=== PATIENT | female | born 1945 | race Caucasian/White ===

== ENCOUNTER → 2024-08-26 | Outpatient (CLI) | payer OTHER, MEDICAID, SELFPAY ==
[2024-08-26 13:42] LABS: Basophils # (Auto) 0.1 Thou/mm3 (0.0-0.2); Basophils % (Auto) 2 % (0-2.5); Eosinophils # (Auto) 0.1 Thou/mm3 (0.0-0.5); Eosinophils % (Auto) 3 % (0-10); Hematocrit 37.4 % (36.0-46.0); Hemoglobin 12.7 g/dL (12.0-16.0); Immature Granulocytes % (Auto) 0 % (0-0); Immature Granulocytes Auto 0.01 Thou/mm3 (0.00-0.00); Lymphocytes # (Auto) 1.2 Thou/mm3 (1.0-4.8); Lymphocytes % (Auto) 32 % (10-50); Mean Corpuscular Hemoglobin 35.2 pg (25.0-35.0); Mean Corpuscular Volume 104 fL (80-100); Monocytes # (Auto) 0.4 Thou/mm3 (0.0-0.8); Monocytes % (Auto) 10 % (0-12); Neutrophils % (Auto) 53 % (37-80); Nucleated Red Blood Cell % 0 /100 WBC (0); Platelet Count 133 Thou/mm3 (140-440); RDW Standard Deviation 56.8 fL (36.4-46.3); Red Blood Count 3.61 Miln/mm3 (4.00-5.20); White Blood Count 3.8 Thou/mm3 (3.6-11.0)
[2024-08-26 14:17] LABS: Alanine Aminotransferase 39 U/L (10-49); Albumin, Serum 3.9 gm/dL (3.4-4.8); Albumin/Globulin Ratio 2.1 (1.2-2.2); Alkaline Phosphatase 72 U/L (46-116); Anion Gap 8 (7-16); Aspartate Amino Transferase 57 U/L (0-34); BUN/Creatinine Ratio 16 Ratio (12-20); Bilirubin,Total 0.4 mg/dL (0.3-1.2); Blood Urea Nitrogen 13 mg/dL (9-23); Calcium 8.9 mg/dL (8.3-10.6); Chloride 110 mMol/L (98-107); Creatinine (Component) 0.8 mg/dL (0.6-1.3); Globulin 1.9 gm/dL (2.3-3.5); Glucose 80 mg/dL (74-106); Osmolality,Calculated 282 (275-295); Potassium 4.7 mMol/L (3.4-5.1); Sodium 142 mMol/L (136-145); Total Protein 5.8 gm/dL (5.7-8.2); eGFR > 60 See Note
[2024-08-31 07:00] LABS: Gamma Glutamyl Transpeptidase* 17 U/L (3-65)
== END | disposition home or self-care (01) ==
LOC: COPL 11:30
PROVIDERS: PCP Family Medicine; Referring Provider Internal Medicine Hematology & Oncology; Visit Provider Internal Medicine Hematology & Oncology
DX: K76.0 Fatty (change of) liver, not elsewhere classified (principal); D72.819 Decreased white blood cell count, unspecified; D69.6 Thrombocytopenia, unspecified
CPT/HCPCS: 36415; 80053; 82105; 82977; 85025

== ENCOUNTER → 2024-09-04 | Outpatient (CLI) | payer OTHER, MEDICAID, SELFPAY ==
[2024-09-04 10:20] LABS: Basophils # (Auto) 0.1 Thou/mm3 (0.0-0.2); Basophils % (Auto) 1 % (0-2.5); Eosinophils # (Auto) 0.1 Thou/mm3 (0.0-0.5); Eosinophils % (Auto) 1 % (0-10); Hematocrit 40.1 % (36.0-46.0); Hemoglobin 13.5 g/dL (12.0-16.0); Immature Granulocytes % (Auto) 0 % (0-0); Immature Granulocytes Auto 0.01 Thou/mm3 (0.00-0.00); Lymphocytes # (Auto) 1.4 Thou/mm3 (1.0-4.8); Lymphocytes % (Auto) 33 % (10-50); Mean Corpuscular HGB Conc 33.7 g/dl (31.0-37.0); Mean Corpuscular Volume 104 fL (80-100); Monocytes # (Auto) 0.4 Thou/mm3 (0.0-0.8); Monocytes % (Auto) 10 % (0-12); Neutrophils # (Auto) 2.3 Thou/mm3 (1.8-7.7); Neutrophils % (Auto) 55 % (37-80); Nucleated Red Blood Cell % 0 /100 WBC (0); Platelet Count 130 Thou/mm3 (140-440); RDW Standard Deviation 55.9 fL (36.4-46.3); Red Blood Count 3.86 Miln/mm3 (4.00-5.20); White Blood Count 4.3 Thou/mm3 (3.6-11.0)
[2024-09-04 11:14] LABS: Alanine Aminotransferase 29 U/L (10-49); Albumin, Serum 4.3 gm/dL (3.4-4.8); Alkaline Phosphatase 76 U/L (46-116); Anion Gap 12 (7-16); Aspartate Amino Transferase 45 U/L (0-34); BUN/Creatinine Ratio 16 Ratio (12-20); Bilirubin,Direct 0.2 mg/dL (0.0-0.3); Bilirubin,Total 0.5 mg/dL (0.3-1.2); Blood Urea Nitrogen 13 mg/dL (9-23); Calcium 9.2 mg/dL (8.3-10.6); Carbon Dioxide 24.5 mMol/L (20.0-31.0); Cardiac Risk Estimate 1.9 RATIO (3.7-5.6); Chloride 106 mMol/L (98-107); Cholesterol 114 mg/dL (132-200); Creatinine (Component) 0.8 mg/dL (0.6-1.3); Free T4 (Free Thyroxine) 0.85 ng/dL (0.89-1.76); Glucose 95 mg/dL (74-106); HDL Cholesterol 60 mg/dL (40-60); LDL Cholesterol,Calculated 38 mg/dL (0-130); Osmolality,Calculated 283 (275-295); Potassium 4.4 mMol/L (3.4-5.1); Sodium 142 mMol/L (136-145); Thyroid Stimulating Hormone 1.65 uIU/mL (0.55-4.78); Total Protein 6.3 gm/dL (5.7-8.2); Triglycerides 80 mg/dL (30-150); eGFR > 60 See Note
== END | disposition home or self-care (01) ==
LOC: COPL 09:46
PROVIDERS: PCP Family Medicine; Referring Provider Internal Medicine Cardiovascular Disease; Visit Provider Internal Medicine Cardiovascular Disease
DX: I10 Essential (primary) hypertension (principal); E78.5 Hyperlipidemia, unspecified; I49.9 Cardiac arrhythmia, unspecified
CPT/HCPCS: 36415; 80048; 80061; 80076; 84439; 84443; 85025

== ENCOUNTER 2024-09-24 13:41 | Inpatient (IN) | payer OTHER, MEDICAID, MEDICARE, SELFPAY ==
[2024-09-24] VITALS (8 sets, daily range): BP systolic 134–179; BP diastolic 81–102; PULSE 69–89; RESP 12–22; TEMP 36.8–37.2; O2SAT 93–98; BMI 19.5
--- NOTE | 2024-09-24 14:06 | PC.LAC ---
PT PEDRO LUIS WAS WALKING IN PARKING LOT AT [facility], SLIPPED ON WET PAVEMENT, PT DID HIT HER HEAD BUT DENIES ANY LOC. DENIES BEING ON BLOOD THINNERS. PT SUSTAINED A LACERATION TO RIGHT SIDE OF HER FOREHEAD AND HAS SKIN TEAR TO RIGHT ELBOW. PT ALSO HAS VISIBLE DEFORMITY TO RIGHT KNEE. PT ARRIVES W TO L AC FROM EMS. PT MEDICATED WITH 1000MG IV TYLENOL AND 100MCG OF FENTANYL BY EMS. PT COMPLAINING OF 9/10 PAIN TO HER RIGHT KNEE. CALL PEDERSEN IN REACH. PROVIDER AT BEDSIDE ASSESSING PT.
--- NOTE | 2024-09-24 14:18 | PD.EDFALL ---
ED Fall Injury RME/HPI General Chief Complaint: Extremity Injury, Lower Stated Complaint: FALL Time Seen by Provider: 09/24/24 14:03 Arrival date/time: 09/24/24 13:41 RME / HPI RME / HPI Narrative: 79-year-old female patient with significant history of hypertension, currently not taking any blood thinner, came in for evaluation regarding ground-level fall. Patient sustained a ground-level fall in the parking area outside a store, complaining old abrasions to the right elbow, right forehead, and pain and deformity to the distal femur. Patient is unable to ambulate due to pain. Patient denies any LOC denies any neck pain denies any chest pain hip pain or abdominal pain. Patient was given Tylenol 1 g IV and fentanyl [address] the [address] to the emergency room. Related Data Home Medications ?Medication ?Instructions ?Recorded ?Confirmed ibuprofen 800 mg tablet 800 mg PO Q8HR PRN PAIN #0 tabs 02/26/14 09/25/24 lisinopril 40 mg tablet 40 mg PO QDAY High Blood Pressure 02/26/14 09/25/24 #0 tabs amlodipine 5 mg tablet 5 mg PO QDAY 01/06/21 09/25/24 ergocalciferol (vitamin D2) 1,250 50,000 unit PO 2 X WEEKLY 01/06/21 09/25/24 mcg (50,000 unit) capsule escitalopram oxalate 20 mg tablet 20 mg PO QDAY 01/06/21 09/25/24 hydrocodone 10 mg-acetaminophen 1 tab PO Q8H PRN Pain 01/06/21 09/25/24 325 mg tablet tizanidine 4 mg tablet 4 mg PO BID PRN Spasms 01/06/21 09/25/24 calcium carbonate-vitamin D3 600 1 tab PO QDAY 12/18/22 09/25/24 mg-125 unit tablet primidone 50 mg tablet 50 mg PO QDAY 09/25/24 09/25/24 Allergies Allergy/AdvReac Type Severity Reaction Status Date / Time Penicillins Allergy Unknown Verified 09/24/24 13:58 Adhesives Allergy Intermediate Rash Uncoded 09/24/24 13:58 Contrast Media Allergy Intermediate Rash Uncoded 09/24/24 13:58 MESH Allergy Mild Blister Uncoded 09/24/24 13:58 Review of Systems Review of Systems Narrative Review of Systems: Review of system reviewed and within normal limits except mentioned in HPI ED Exam Narrative Physical exam: VITAL SIGNS: Reviewed. GENERAL APPEARANCE: Alert and interactive, follows commands, no acute distress, HEAD AND FACE: 1 cm laceration to the forehead, with tenderness ENT: PERRL, pink conjunctivitis, eyelid no trauma, Mucous membrane moist. NECK: Supple, nontender, no nuchal rigidity. CHEST: No tenderness, no crepitus, no paradoxical movement, no retractions. LUNGS: Clear, well ventilated, symmetric, no rales, no wheezing, no ronchi, no stridor, good breath sounds bilaterally. HEART: Regular rate, regular rhythm, no murmur, no gallops. ABDOMEN: Soft, positive bowel sounds, nondistended, no guarding, nontender, no rebound, no masses, RECTAL: Deferred. GENITAL: Deferred. NEUROLOGICAL: Gross motor function intact sensory function intact, Appropriate for age. MUSCULOSKELETAL: low back nontender, full range of motion. EXTREMITIES: Right distal femur deformity, swelling, shortening, with tenderness, distal neurovascular status intact right lower extremity SKIN: Color pink, dry, no rash, no lacerations, no abrasions, no contusions. LYMPHATICS: Deferred. Course Quality Measures none Orders Category Date Time Status Admit to Inpatient Status Routine Admission 09/24/24 17:19 Active Patient Condition Routine Admission 09/24/24 17:18 Ordered COVID-19 Screening Questionnaire NOW Care 09/24/24 16:45 Active Decision to Admit X1 Care 09/24/24 16:45 Completed EKG (ED ONLY) *Do not use* NOW Care 09/24/24 14:23 Completed [facility] to [place] Routine Care 09/24/24 14:21 Ordered Notify provider NEEDED Care 09/24/24 17:18 Active Consult to Orthopedic Stat Cons 09/24/24 16:[address] cervical spine wo con Stat Exams 09/24/24 14:[address] head/brain wo con Stat Exams 09/24/24 14:[address] lower leg RT wo con Stat Exams 09/24/24 16:42 Completed EKG (ED Only) Stat Exams 09/24/24 14:23 Draft XR chest 1V Stat Exams 09/24/24 14:21 Completed XR femur RT 2V Stat Exams 09/24/24 14:21 Completed XR knee limited RT 2V Stat Exams 09/24/24 14:21 Completed XR pelvis 1-2V Stat Exams 09/24/24 14:21 Completed B-Type Natriuretic Peptide Stat Lab 09/24/24 14:31 Completed CBC AM DRAW Lab 09/25/24 04:36 Completed CBC AM DRAW Lab 09/26/24 05:00 Ordered CBC AM DRAW Lab 09/27/24 05:00 Ordered CBC Stat Lab 09/24/24 14:31 Completed Comprehensive Metabolic Panel AM DRAW Lab 09/25/24 04:36 Completed Comprehensive Metabolic Panel AM DRAW Lab 09/26/24 05:00 Ordered Comprehensive Metabolic Panel AM DRAW Lab 09/27/24 05:00 Ordered Comprehensive Metabolic Panel Stat Lab 09/24/24 14:31 Completed Lipid Panel AM DRAW Lab 09/25/24 04:36 Completed Magnesium AM DRAW Lab 09/25/24 04:36 Completed Magnesium AM DRAW Lab 09/26/24 05:00 Ordered Magnesium AM DRAW Lab 09/27/24 05:00 Ordered Partial Thromboplastin Time Stat Lab 09/24/24 14:31 Completed Phosphorous AM DRAW Lab 09/25/24 04:36 Completed Phosphorous AM DRAW Lab 09/26/24 05:00 Ordered Phosphorous AM DRAW Lab 09/27/24 05:00 Ordered Prothrombin Time with INR AM DRAW Lab 09/25/24 04:36 Completed Prothrombin Time with INR Stat Lab 09/24/24 14:31 Completed Troponin I Stat Lab 09/24/24 14:31 Completed Urinalysis, C/S if Indicated Stat Lab 09/24/24 03:13 Completed Acetaminophen Tab [Tylenol Tab] Med 09/24/24 17:18 Hold 650 mg PO Q6H PRN Morphine Inj Med 09/24/24 15:14 Discontinued 4 mg IVP X1 ONE Ondansetron Inj [Zofran Inj] Med 09/24/24 17:18 Active 4 mg IV Q6H PRN Ondansetron Inj [Zofran Inj] Med 09/24/24 15:14 Discontinued 4 mg IV X1 ONE Senna [Senokot] Med 09/25/24 09:00 Active 1 tab PO QDAY Code Status Routine Oth 09/24/24 17:18 Ordered Oxygen Delivery PRN RT 09/24/24 17:21 Active Vital Signs Vital signs: Vital Signs Temperature 98.2 F 09/24/24 14:48 Pulse Rate 69 09/24/24 14:48 Respiratory Rate 18 09/24/24 14:48 Blood Pressure 179/102 H 09/24/24 14:48 Pulse Oximetry (%) 95 09/24/24 14:48 Oxygen Delivery Method Room Air 09/24/24 14:48 Fall [facility] Narrative [facility] Narrative:: 79-year-old female patient with significant history of hypertension, currently not taking any blood thinner, came in for evaluation regarding ground-level fall. Patient sustained a ground-level fall in the parking area outside a store, complaining old abrasions to the right elbow, right forehead, and pain and deformity to the distal femur. Patient is unable to ambulate due to pain. Patient denies any LOC denies any neck pain denies any chest pain hip pain or abdominal pain. Patient was given Tylenol 1 g IV and fentanyl [address] IV [address] the way to the emergency room. Wound cleansed with skin cleanser, and Steri-Strips applied. Patient received morphine IV and Zofran Patient's workup came back unremarkable. CT scan of the head came back normal CT scan of the neck came back normal x-ray of the right femur showed supracondylar fracture femur I consulted Dr. Cleaning, orthopedic surgeon on-call, told me to asked the hospitalist to admit the patient. Plan discussed with the patient and agrees to be admitted for surgery Patient data External records reviewed:: None Clinical information provided by:: patient Social determinants that could affect healthcare access:: none Patient has the following chronic illnesses:: Hypertension How is presenting disease/condition affected by chronic disease/condition?: uneffected by Evaluation data The following diagnostics were reviewed and interpreted by me:: lab results, radiology exam(s) and EKG tracing(s) Lab and/or radiology exams considered but not ordered:: None Interpretation Summary: See results in MDM Medications / Prescriptions Medications or Prescriptions considered but not ordered:: None Medication administrations:: Medication Administration History Acetaminophen (Acetaminophen 325 Mg Tablet) 650 mg PO Q6H PRN PRN Reason: Pain 1-3 or Fever >100.3 Stop: 10/24/24 17:17 Hydrocodone Bitart/Acetaminophen (Hydrocodone/Apap 5/325 Tablet) 1 tab PO Q4HR PRN PRN Reason: Pain 4-6 Stop: 09/29/24 17:29 Amlodipine Besylate (Amlodipine Besylate 5 Mg Tablet) 5 mg PO QDAY [facility] Stop: 10/24/24 18:29 Last Admin: 09/25/24 08:01 Dose: Not Given Documented By: TD Non-Admin Reason: NPO Admin: 09/24/24 19:41 Dose: 5 mg Documented By: CHENCHO Fentanyl Citrate (Fentanyl Cit Inj 50 Mcg/Ml Amp 2ml) 25 mcg IV Q5M PRN PRN Reason: PAIN SCALE 1-3 (mild Stop: 09/25/24 16:11 Lisinopril (Lisinopril 20 Mg Tablet) 40 mg PO QDAY JI Stop: 10/24/24 17:29 Last Admin: 09/25/24 08:01 Dose: Not Given Documented By: TD Non-Admin Reason: NPO Admin: 09/24/24 19:40 Dose: Not Given Documented By: CHENCHO Non-Admin Reason: Other, see note Morphine Sulfate (Morphine Sulf Inj 10 Mg/Ml Vial) 2 mg IVP Q4HR PRN PRN Reason: PAIN SCALE 7-10 (Severe Stop: 09/29/24 21:29 Last Admin: 09/25/24 09:54 Dose: 2 mg Documented By: Admin: 09/25/24 03:19 Dose: 2 mg Documented By: Admin: 09/24/24 22:02 Dose: 2 mg Documented By: DOUGLAS Morphine Sulfate (Morphine Sulf Inj 10 Mg/Ml Vial) 3 mg IV Q5M PRN PRN Reason: PAIN SCALE 4-6 (Moderate Stop: 09/25/24 16:11 Ondansetron HCl (Ondansetron Inj 2 Mg/Ml Inj 2 Ml) 4 mg IV Q6H PRN; Protocol PRN Reason: NAUSEA OR VOMITING Stop: 10/24/24 17:17 Sennosides (Senna Tablet) 1 tab PO QDAY [facility]; Protocol Stop: 10/25/24 08:59 Last Admin: 09/25/24 08:02 Dose: Not Given Documented By: TD Non-Admin Reason: NPO Tizanidine HCl (Tizanidine Hcl 2 Mg Tablet) 4 mg PO BID PRN PRN Reason: Spasms Stop: 10/24/24 20:59 Discontinued Medications Cefazolin Sodium (Cefazolin Inj 1 Gm Vial) Confirm Administered Dose 2 gm .ROUTE .[facility] ONE Stop: 09/25/24 13:14 Fentanyl Citrate (Fentanyl Cit Inj 50 Mcg/Ml Amp 2ml) Confirm Administered Dose 100 mcg .ROUTE .[facility]-MED ONE Stop: 09/25/24 12:22 Heparin Sodium (Porcine) (Heparin Sod Inj 5000 Unit/Ml Vial) 5,000 unit SC X1 ONE Stop: 09/24/24 17:27 Last Admin: 09/24/24 18:44 Dose: Not Given Documented By: RUEL Non-Admin Reason: Cancelled by Provider Comments: PER DR. CLEANING Morphine Sulfate (Morphine Sulf Inj 10 Mg/Ml Vial) 4 mg IVP X1 ONE Stop: 09/24/24 15:15 Last Admin: 09/24/24 15:21 Dose: 4 mg Documented By: RUEL Ondansetron HCl (Ondansetron Inj 2 Mg/Ml Inj 2 Ml) 4 mg IV X1 ONE; Protocol Stop: 09/24/24 15:15 Last Admin: 09/24/24 15:20 Dose: 4 mg Documented By: RUEL Propofol (Propofol Inj 10 Mg/Ml Vial 20 Ml) Confirm Administered Dose 200 mg IV .STK-MED ONE Stop: 09/25/24 12:59 Ropivacaine (Ropivacaine Inj 0.5% 5 Mg/Ml Amp 20 Ml) Confirm Administered Dose 100 mg .ROUTE .STK-MED ONE Stop: 09/25/24 12:24 Tranexamic Acid (Tranexamic Acid Inj 1,000 Mg/10 Ml Vial) Confirm Administered Dose 1,000 mg .ROUTE .STK-MED ONE Stop: 09/25/24 13:21 Morphine Consultations Consultation(s) initiated? (list below): Yes Consultation #1 (Physician, Specialty, Details): I consulted Dr. Cleaning orthopedic surgeon on-call, thank you Diagnosis Fall Differential Diagnosis: other (Supracondylar fracture femur, knee dislocation, status post fall) Most likely diagnosis given after review of the tests above:: Distal femur fracture, status post fall Admission Indicated Admission indicated?: indicated Admission Request Was there a request for admission?: Yes Admission Attestation Admission request attestation: Discussed case with Hospitalist service regarding admission. Discussed patients ED course, exam findings, labs, and radiology results. The Hospitalist [agrees to accept the patient for admission. Disposition Plan Disposition Plan: Admit Discharge Plan Plan Patient Disposition: Admit Acute Care w/in Hospital Disposition Comment: Stable Problem List Clinical Impression: Closed supracondylar fracture of femur, Fall, Abrasion of right eyebrow
--- NOTE | 2024-09-24 14:21 | XR_ITS ---
Examination: AP chest single view Technique one AP portable upright chest single view Exam date and time: September 24, 2024 1552 hrs. Comparison February 12, 2023 Indications: Patient fell today with injury to the chest, chest pain Findings: No significant cardiac enlargement Ectatic enlarged thoracic aorta. No pneumothorax Prominent osteopenia Mild deformity of the right humeral neck Clavicles ribs appear intact Impression: No pneumothorax pulmonary contusion or hemothorax Recommend follow-up right shoulder films as clinically warranted
--- NOTE | 2024-09-24 14:21 | XR_ITS ---
Examination: AP pelvis single view Technique one AP portable supine pelvis single view Exam date and time: September 24, 2024 1610 hrs. Indications: Patient fell today with injury to the pelvis, pelvic pain. Findings: Severe osteopenia No acute fractures or dislocations Bones of the pelvis intact Impression: No acute hip or pelvic fracture Given the severe osteopenia, recommend short-term follow-up AP pelvis film as clinically warranted
--- NOTE | 2024-09-24 14:21 | XR_ITS ---
Examination: CT cervical spine without contrast 2-D sagittal reconstructions 2-D coronal reconstructions 3-D reconstructions. Exam date and time:September 24, 2024 1541 hours INDICATIONS: Patient fell today with into the neck, neck pain CTDI:vol (mGy) 7.04 DLP: (mGycm) 144 Technique: Multiple 2 mm axial sections of the cervical spine have been obtained. The coronal and sagittal reconstructions have been obtained. 3-D reconstructions have been obtained. Low dose protocols were performed. One or more of the following dose reduction techniques were used; automated exposure control, adjustment of the mA and/or KV according to patient size, use of iterative reconstruction technique. Findings: Axial sections demonstrate intact base of the skull. Cervical fusion C4-C7 Grade 1 anterolisthesis C7 on T1 which is more pronounced on this study compared with January 06, 2021, measuring 3 mm C1 exhibit satisfactory relationship to the odontoid. No acute cervical vertebral body fracture seen. Alignment posterior spinous processes satisfactory. Impression: No acute cervical fracture. Grade 1 anterolisthesis C7 on T1, 3 mm, increased in extent compared to 1 mm on January 06, 2021, clinical correlation advised Recommend plain film 5 views cervical spine series one week follow-up
--- NOTE | 2024-09-24 14:21 | XR_ITS ---
Examination: CT brain head without contrast. 2-D sagittal coronal reconstructions Date and time of exam:September 24, 2024 1341 hours INDICATIONS: Patient fell today with injury to the head, head pain CTDI: vol (mGy):46.8 DLP: (mGycm):944 Technique: Multiple CT axial sections of the brain have been obtained, 5 mm slice thickness. Contrast has not been administered. 2-D sagittal, coronal reconstructions have been obtained Low dose protocols were performed. One or more of the following dose reduction techniques were used; automated exposure control, adjustment of the mA and/or KV according to patient size, use of iterative reconstruction technique. Findings: No significant ventricular enlargement. Intra-axial or extra-axial hemorrhage density is not seen. No mass effect or midline shift Basal cisterns are not remarkable. Fourth ventricle is midline. Cranial vault intact. Impression: Negative for acute hemorrhage, mass effect or midline shift
--- NOTE | 2024-09-24 14:21 | XR_ITS ---
Examination: Right knee 2 views Technique one AP lateral right knee 2 views Exam date and time: September 24, 2024 1606 hrs. Indication: Patient fell today with injury to the knee, knee pain. Findings: Acute severely comminuted fracture distal femoral shaft, on the AP view 23 mm offset of the femoral shaft medially The fracture lines do appear to extend to the medial femoral condyle on the AP view Impression: Acute severely comminuted fractures distal femoral shaft, the fracture lines do appear to extend medial femoral condyle on the AP view
--- NOTE | 2024-09-24 14:21 | XR_ITS ---
Examination: Right femur 2 views Technique: AP lateral right femur 2 views Exam date and time: September 24, 2024 1550 hrs. Indications: Patient fell today with injury of the femur, femur pain. Findings: Acute severely comminuted fractures distal femoral shaft supracondylar Fracture lines appear to extend to the medial femoral condyle Prosthetic the devices do not exhibit displacement Impression: Acute severely comminuted fractures distal femoral shaft supracondylar
--- NOTE | 2024-09-24 14:23 | EKG_ITS ---
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: : 1945 Requested By: Jacklyn Perla Order Number: [id number] Reading MD: Jacklyn Perla Measurements Intervals [place] Rate: 74 P: 75 KS: 249 QRS: 51 QRSD: 88 T: 55 QT: 388 QTc: 431 Interpretive Statements SINUS RHYTHM WITH FIRST DEGREE AV BLOCK WITH OCCASIONAL SUPRAVENTRICULAR PREMATURE COMPLEXES SEPTAL MYOCARDIAL INFARCTION , PROBABLY OLD [40+ ms Q WAVE IN V1/V2] Compared to ECG 06/24/2024 10:23:49 First degree AV block now present Myocardial infarct finding now present Atrial-paced complex(es) or rhythm no longer present Left ventricular hypertrophy no longer present ST (T wave) deviation no longer present /store/S0/[id number]/ecg/[id number].pdf
[2024-09-24 14:53] LABS: Basophils # (Auto) 0.1 Thou/mm3 (0.0-0.2); Basophils % (Auto) 1 % (0-2.5); Eosinophils # (Auto) 0.1 Thou/mm3 (0.0-0.5); Eosinophils % (Auto) 1 % (0-10); Hematocrit 36.2 % (36.0-46.0); Hemoglobin 11.9 g/dL (12.0-16.0); Immature Granulocytes % (Auto) 0 % (0-0); Immature Granulocytes Auto 0.02 Thou/mm3 (0.00-0.00); Lymphocytes # (Auto) 1.1 Thou/mm3 (1.0-4.8); Lymphocytes % (Auto) 21 % (10-50); Mean Corpuscular HGB Conc 32.9 g/dl (31.0-37.0); Mean Corpuscular Volume 107 fL (80-100); Monocytes # (Auto) 0.5 Thou/mm3 (0.0-0.8); Monocytes % (Auto) 10 % (0-12); Neutrophils # (Auto) 3.4 Thou/mm3 (1.8-7.7); Neutrophils % (Auto) 66 % (37-80); Nucleated Red Blood Cell % 0 /100 WBC (0); Platelet Count 145 Thou/mm3 (140-440); White Blood Count 5.1 Thou/mm3 (3.6-11.0)
[2024-09-24 15:08] LABS: INR 1.1 (0.9-1.3); Prothrombin Time 11.5 Seconds (9.0-12.2)
[2024-09-24 15:11] LABS: B-Type Natriuretic Peptide 182 pg/mL (0-100)
[2024-09-24 15:13] LABS: Alanine Aminotransferase 21 U/L (10-49); Albumin, Serum 3.8 gm/dL (3.4-4.8); Albumin/Globulin Ratio 1.9 (1.2-2.2); Alkaline Phosphatase 61 U/L (46-116); Anion Gap 9 (7-16); Aspartate Amino Transferase 28 U/L (0-34); BUN/Creatinine Ratio 17 Ratio (12-20); Bilirubin,Total 0.3 mg/dL (0.3-1.2); Blood Urea Nitrogen 12 mg/dL (9-23); Calcium 8.6 mg/dL (8.3-10.6); Calcium (Corrected) 8.8 mg/dL (8.5-10.1); Carbon Dioxide 25.2 mMol/L (20.0-31.0); Chloride 108 mMol/L (98-107); Creatinine (Component) 0.7 mg/dL (0.6-1.3); Estimated Creatinine Clearance 47.4 mL/min (>60); Glucose 108 mg/dL (74-106); Osmolality,Calculated 283 (275-295); Potassium 3.8 mMol/L (3.4-5.1); Sodium 142 mMol/L (136-145); Total Protein 5.8 gm/dL (5.7-8.2); Troponin I < 0.020 ng/mL (0.0-0.045); eGFR > 60 See Note
[2024-09-24] MEDS: ONDANSETRON INJ 2 MG/ML INJ 2 ML 4 MG IV (15:20)
[2024-09-24] MEDS: MORPHINE SULF INJ 10 MG/ML VIAL 4 MG IVP (15:21)
--- NOTE | 2024-09-24 16:42 | XR_ITS ---
Examination: CT right lower leg, without contrast. 2-D sagittal reconstructions. 2-D coronal reconstructions. 3-D reconstructions. Date and time of exam:September 24, 2024 1759 hrs. Indications: Patient fell today with injury to the knee, femur fracture CTDI: vol (mGy):8.19 DLP: (mGycm):321 Technique: Multiple 1.25 mm axial sections of the right knee have been obtained. 2-D sagittal and coronal reconstructions have been obtained. 3-D reconstructions have been obtained. Low dose protocols were performed. One or more of the following dose reduction techniques were used; automated exposure control, adjustment of the mA and/or KV according to patient size, use of iterative reconstruction technique. Findings: Acute severely comminuted fractures distal femoral shaft The fractures extend to the right and left frontal regions, axial image 294 The femoral shaft is displaced anteriorly 1.5 shaft widths Tibiofibular intact Impression: Acute severely comminuted displaced fractures distal femoral shaft supracondylar, fracture lines do extend to both femoral condyles as described above
--- NOTE | 2024-09-24 18:16 | PD.RESHP ---
Documentation for date of: 09/24/24 HPI History of Present Illness History of present illness: The patient is a 79-year-old female with a past medical history of hypertension and ?seizure disorder presenting to the ED on 09/24/2024 after a fall. Per the patient, she was in the parking lot by [employer] trying to load up a chair into her car by herself when she tripped on the curb and fell. She hit her head upon impact but did not lose consciousness. She tried to get up but was unable to and eventually had to get an ambulance called for her. She complains of pain in her head and open minimal balance moderate pain in her right knee. ED course: In the ED, patient was hemodynamically stable. Labs showed WBC 5.1 Hgb 11.9 PLT 145 NA 142 potassium 3.8 chloride 108 BUN 12 creatinine 0.[address] cervical spine was done which showed no acute cervical fracture. Chest x-ray was also done which was negative x-ray femur was done which showed acute severely comminuted fractures of the distal femoral shaft. Head CT was negative. Orthopedic surgeon Dr. Hernandez was consulted in the ED and recommended to admit the patient for possible surgical intervention. PMHx-as above PSHx-knee and back surgery Home meds-lisinopril, amlodipine, tizanidine, ?primidone Review of Systems Review of Systems Narrative Review of Systems: GENERAL: Denies fevers/chills or diaphoresis. HEENT: Denies headache or visual/hearing changes. Denies nasal discharge. NEURO: Denies unusual weakness or difficulty speaking. CARDIO: Denies chest pain or palpitations. PULM: Denies SOB, coughing, or wheezing. GI: Denies abdominal pain, N/V/C/D/reflux/gas, bright red blood per rectum or melena. Reports having BMs. URO: Denies burning/itching/pain/urinary changes. MSK/EXT/SKIN: Admits pain in the head and right knee PSYCH: Cooperative, pleasant mood & affect. Exam Vital Signs Temp Pulse Resp BP Pulse Ox O2 Del Method 99.0 F 72 18 158/83 H 96 Room Air 09/24/24 17:46 09/24/24 17:46 09/24/24 17:46 09/24/24 17:46 09/24/24 17:46 09/24/24 17:46 Narrative Exam GENERAL: AAOX3. 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 Eyes open, symmetrical, & clear CARDIO: No chest pain on palpation. Irregular rhythm, no murmurs PULM: No noted coughing/dyspnea. Lungs CTA B/L GI: Abdomen soft, nondistended, no pain on palpation. BSx4 URO/WHARFMASTER:: No further abnormalities noted. SKIN/MSK/EXT: Right lower extremity shorter than left, externally rotated. Right knee is swollen and tender to touch Results: Labs 09/25/24 04:36 09/25/24 04:36 Labs: Short CBC 09/24/24 Range/Units 14:31 WBC 5.1 (3.6-11.0) Thou/mm3 Hgb 11.9 L (12.0-16.0) g/dL Hct 36.2 (36.0-46.0) % Plt Count 145 (140-440) Thou/mm3 BMP 09/24/24 14:31 Sodium 142 Potassium 3.8 Chloride 108 H Carbon Dioxide 25.2 BUN 12 Creatinine 0.7 Glucose 108 H Calcium 8.6 Cardiac Enzymes 09/24/24 Range/Units 14:31 Troponin I < 0.020 (0.0-0.045) ng/mL Liver Function 09/24/24 Range/Units 14:31 Total Bilirubin 0.3 (0.3-1.2) mg/dL AST 28 (0-34) U/L ALT 21 (10-49) U/L Alkaline Phosphatase 61 (46-116) U/L Albumin 3.8 (3.4-4.8) gm/dL Quality Measures Quality Measures VTE prophylaxis Advance care planning discussed with:: patient Medications Home Medications and Allergies Home Medications ?Medication ?Instructions ?Recorded ?Confirmed ?Type ibuprofen 800 mg tablet 800 mg PO Q8HR PRN PAIN #0 tabs 02/26/14 09/25/24 History lisinopril 40 mg tablet 40 mg PO QDAY High Blood Pressure 02/26/14 09/25/24 History #0 tabs amlodipine 5 mg tablet 5 mg PO QDAY 01/06/21 09/25/24 History ergocalciferol (vitamin D2) 1,250 50,000 unit PO 2 X WEEKLY 01/06/21 09/25/24 History mcg (50,000 unit) capsule escitalopram oxalate 20 mg tablet 20 mg PO QDAY 01/06/21 09/25/24 History hydrocodone 10 mg-acetaminophen 1 tab PO Q8H PRN Pain 01/06/21 09/25/24 History 325 mg tablet tizanidine 4 mg tablet 4 mg PO BID PRN Spasms 01/06/21 09/25/24 History calcium carbonate-vitamin D3 600 1 tab PO QDAY 12/18/22 09/25/24 History mg-125 unit tablet primidone 50 mg tablet 50 mg PO QDAY 09/25/24 09/25/24 History Allergies Allergy/AdvReac Type Severity Reaction Status Date / Time Penicillins Allergy Unknown Verified 09/24/24 13:58 Adhesives Allergy Intermediate Rash Uncoded 09/24/24 13:58 Contrast Media Allergy Intermediate Rash Uncoded 09/24/24 13:58 MESH Allergy Mild Blister Uncoded 09/24/24 13:58 Visit Medications Acetaminophen (Acetaminophen 325 Mg Tablet) 650 mg PO Q6H PRN PRN Reason: Pain 1-3 or Fever >100.3 Stop: 10/24/24 17:17 Hydrocodone Bitart/Acetaminophen (Hydrocodone/Apap 5/325 Tablet) 1 tab PO Q4HR PRN PRN Reason: Pain 4-6 Stop: 09/29/24 17:29 Lisinopril (Lisinopril 20 Mg Tablet) 40 mg PO QDAY JI Stop: 10/24/24 17:29 Ondansetron HCl (Ondansetron Inj 2 Mg/Ml Inj 2 Ml) 4 mg IV Q6H PRN; Protocol PRN Reason: NAUSEA OR VOMITING Stop: 10/24/24 17:17 Sennosides (Senna Tablet) 1 tab PO QDAY JI; Protocol Stop: 10/25/24 08:59 Tizanidine HCl (Tizanidine Hcl 2 Mg Tablet) 4 mg PO BID PRN PRN Reason: Spasms Stop: 10/24/24 20:59 Discontinued Medications Heparin Sodium (Porcine) (Heparin Sod Inj 5000 Unit/Ml Vial) 5,000 unit SC X1 ONE Stop: 09/24/24 17:27 Morphine Sulfate (Morphine Sulf Inj 10 Mg/Ml Vial) 4 mg IVP X1 ONE Stop: 09/24/24 15:15 Last Admin: 09/24/24 15:21 Dose: 4 mg Ondansetron HCl (Ondansetron Inj 2 Mg/Ml Inj 2 Ml) 4 mg IV X1 ONE; Protocol Stop: 09/24/24 15:15 Last Admin: 09/24/24 15:20 Dose: 4 mg Assessment & Plan Plan Summary: The patient is a 79-year-old female with a past medical history of hypertension and seizure disorder presented to the ED on 09/24/2024 after fall. #Acute comminuted fracture of distal femoral shaft #S/P fall Per the patient, she was in the parking lot by [employer] trying to load up a chair into her car by herself when she tripped on the curb and fell. She hit her head upon impact but did not lose consciousness. She tried to get up but was unable to and eventually had to get an ambulance called for her. She complains of pain in her head and open minimal balance moderate pain in her right knee. X-ray femur was done which showed acute severely comminuted fractures of the distal femoral shaft Orthopedic surgeon Dr. Hernandez was consulted in the ED and recommended to admit the patient for possible surgical intervention. Plan:- -Admit to med telemetry -N.p.o. after midnight -Pain management -Orthopedic consulted, appreciate recommendations #Paroxysmal versus chronic A-fib In the ED, an EKG was done which showed a sinus rhythm. However upon examination, patient was noted to be in A-fib however rate controlled. When asked, patient reported that she has been told before that she has skipping heartbeats. Heart rates currently normal Plan: -Repeat EKG tomorrow -Continue to monitor #?Seizure disorder The patient is on primidone 50 mg and zonisamide 100 mg daily. Plan: -Resume home meds #History of hypertension Patient has a history of hypertension and is on lisinopril 40 mg and amlodipine 5 mg daily. Blood pressure on admission active elevated. Plan: -Resume home meds Health maintenance: Dispo: MedTele Diet: Npo after midnight GI: Pantoprazole DVT: SC Heparin x 1 Rodríguez: None Lines: Peripheral Med Rec: Pending, f/u PT: Ordered Code: Full Case was discussed with Dr Lopez PGY-2 and attending physician, Dr Roxana Powell MD PGY-1 Attending Provider Attestation/Addendum I reviewed labs, imaging, EKG, home medications and prior available records. Face to face evaluation was performed by me. I have personally examined the patient and discussed assessment and plan with the IM team. I reviewed the resident note and agree with the plan with exceptions as below. Ground-level fall Acute comminuted fracture of distal femoral shaft Paroxysmal atrial fibrillation Consulted orthopedic surgery Management of pain as needed. She is requiring IV morphine N.p.o. after midnight for possible OR
--- NOTE | 2024-09-24 18:45 | PC.NURSE ---
SPOKE TO PER DR. CLEANING OVER THE PHONE HE DOES NOT WANT THE PT TO GET ANY HEPARIN OR LOVENOX
[2024-09-24] MEDS: amLODIPine BESYLATE 5 MG TABLET PO (19:41)
--- NOTE | 2024-09-24 19:58 | PC.NURSE ---
REPORT CALLED TO ANEUDY MATTHEWS. ALL QUESTIONS ASKED AND ANSWERED. PATIENT TRANSFERRED TO ROOM BY STAFF. PATIENT REMAINS ON ROOM AIR. NO DISTRESS NOTED AT THIS TIME.
[2024-09-24] MEDS: MORPHINE SULF INJ 10 MG/ML VIAL 2 MG IVP (22:02)
[2024-09-25] VITALS (13 sets, daily range): BP systolic 94–153; BP diastolic 71–94; PULSE 66–88; RESP 12–92; TEMP 36.1–37.1; O2SAT 93–100; BMI 19.6
[2024-09-25] MEDS: MORPHINE SULF INJ 10 MG/ML VIAL 2 MG IVP ×2 (03:19→09:54)
[2024-09-25 04:23] LABS: Collection Type, Urine Clean Catch; Squamous Epithelial Cell,Urine 0 /hpf (0-5)
[2024-09-25 04:31] LABS: Bilirubin,Urine Negative (Negative); Blood,Urine Negative (Negative); Clarity,Urine Clear (Clear/Hazy); Color,Urine Lt-Yellow (Lt Yel-Yel); Culture Indicated,Urine Not Indicated; Glucose, Urine Negative (Negative); Ketones,Urine Negative (Negative); Leukocyte Esterase,Urine Negative (Negative); Nitrite,Urine Negative (Negative); Protein,Urine Negative (Neg - Trace); RBC,Urine 2 /hpf (0-3); Specific Gravity,Urine 1.021 (1.001-1.035); Urobilinogen,Urine Negative mg/dL (0.0-1.0); WBC,Urine 2 /hpf (0-5)
[2024-09-25 05:44] LABS: Basophils % (Auto) 1 % (0-2.5); Eosinophils % (Auto) 0 % (0-10); Hemoglobin 9.9 g/dL (12.0-16.0); Immature Granulocytes % (Auto) 0 % (0-0); Immature Granulocytes Auto 0.02 Thou/mm3 (0.00-0.00); Lymphocytes # (Auto) 0.9 Thou/mm3 (1.0-4.8); Lymphocytes % (Auto) 15 % (10-50); Mean Corpuscular Volume 106 fL (80-100); Monocytes % (Auto) 17 % (0-12); Neutrophils # (Auto) 3.8 Thou/mm3 (1.8-7.7); Neutrophils % (Auto) 67 % (37-80); Nucleated Red Blood Cell % 0 /100 WBC (0); Platelet Count 122 Thou/mm3 (140-440); RDW Standard Deviation 58.8 fL (36.4-46.3); Red Blood Count 2.83 Miln/mm3 (4.00-5.20); White Blood Count 5.7 Thou/mm3 (3.6-11.0)
[2024-09-25 06:00] LABS: Partial Thromboplastin Time 25.3 Seconds (22.0-36.0); Prothrombin Time 11.4 Seconds (9.0-12.2)
[2024-09-25 06:12] LABS: Alanine Aminotransferase 19 U/L (10-49); Albumin, Serum 3.3 gm/dL (3.4-4.8); Albumin/Globulin Ratio 1.8 (1.2-2.2); Alkaline Phosphatase 52 U/L (46-116); Anion Gap 7 (7-16); Aspartate Amino Transferase 27 U/L (0-34); BUN/Creatinine Ratio 21 Ratio (12-20); Bilirubin,Total 0.4 mg/dL (0.3-1.2); Blood Urea Nitrogen 15 mg/dL (9-23); Calcium 8.3 mg/dL (8.3-10.6); Calcium (Corrected) 8.9 mg/dL (8.5-10.1); Carbon Dioxide 25.8 mMol/L (20.0-31.0); Cardiac Risk Estimate 1.5 RATIO (3.7-5.6); Chloride 107 mMol/L (98-107); Cholesterol 76 mg/dL (132-200); Creatinine (Component) 0.7 mg/dL (0.6-1.3); Estimated Creatinine Clearance 47.4 mL/min (>60); Globulin 1.8 gm/dL (2.3-3.5); Glucose 105 mg/dL (74-106); HDL Cholesterol 52 mg/dL (40-60); LDL Cholesterol,Calculated 16 mg/dL (0-130); Magnesium 1.9 mg/dL (1.6-2.6); Osmolality,Calculated 280 (275-295); Potassium 4.6 mMol/L (3.4-5.1); Sodium 140 mMol/L (136-145); Total Protein 5.1 gm/dL (5.7-8.2); Triglycerides 40 mg/dL (30-150); eGFR > 60 See Note
--- NOTE | 2024-09-25 09:40 | PC.NURSE ---
grand Ronnson, can be reaches at [phone]
--- NOTE | 2024-09-25 10:10 | PC.SS ---
Patient is alert and oriented. She was admitted for a femoral fracture. Patient was able to verify demographics. Patient has bruises on her face from a recent fall. Patient explained she was at a store carying out a shower chair when she fell. Patient is scheduled to have surgery today. Patient has stated multiple times that she will be leaving AMA after surgery today. She no longer wants to be here. She is upset about numerous things and just wants to be home with her friend who she resides with. Patient's friend has cancer and her family is caring for him while she's here. Patient only has a walker and a cane at home. She has already expressed to nursing staff that she's leaving and is aware of the AmA paperwork. SS attempted to speak with patient about why she should continue to stay for further treatment but she is insisting on leaving. Patient states she has support at home with her grandson, 19 years old and her son, Paulo. Patient verbalized her friend, Ashly will transport her or her son. Patient states her son, Paulo is her alt medical decision maker.
--- NOTE | 2024-09-25 11:58 | ESCONSULT_ITS ---
RE: CURLY STYLES : 1945 DATE OF CONSULTATION: 09/25/2024 REFERRING PHYSICIAN: Dr. Hernandez, the orthopedic surgeon. ADMITTING PHYSICIAN: Hospitalist. PERTINENT HISTORY OF PRESENT ILLNESS: Mrs. Curly Styles is a 79-year-old female who is known to have a history of chronic hypertension, history of chronic low back pain syndrome, history of generalized arthritis, history of cardiac dysrhythmia. The patient was in her usual state of health up until on the day of admission when the patient was loading the bedside commode for her into the car, the patient tripped and fell down and sustained injury to the right side of the face around the eye as well as injury to the right lower extremity. The patient was brought into the hospital by ambulance and was noted to have a right distal femur fracture and the patient is being considered for surgery for the same. The patient denied any complaint of chest pain, denied any complaint of skipped beats or palpitations, denied any complaint of dizziness or diaphoresis. The patient denied any complaint of syncopal spell. PAST MEDICAL HISTORY: Significant for a history of chronic hypertension for the last at least 15 years, history of gastric bypass surgery about 18 years ago, history of right knee arthroplasty in 2022, history of cervical spinal fusion surgery in 2012, history of left foot toe amputation about 20 years ago. The patient also has a history of cardiac arrhythmia for the last several months. PERSONAL HISTORY: The patient is a nonsmoker, nonalcoholic. FAMILY HISTORY: Noncontributory. PHYSICAL EXAMINATION: VITAL SIGNS: The pertinent physical findings show the patient's blood pressure is 94/77, pulse rate is 88 and regular, respirations are 14, temperature is 98.4, oximetry saturation is 93%. HEAD AND NECK: Unremarkable except for bruising and laceration over the right side of the face around the right eye orbital area. JVP is not elevated. Carotid pulsations are felt well on both sides. No carotid bruits heard. HEART: No cardiomegaly clinically. S1 and S3 normal. Grade 1-2/6 holosystolic murmur best heard at the apex without any radiation to any other site. LUNGS: Clear to percussion and auscultation. ABDOMEN: Soft. No organomegaly. EXTREMITIES: No pedal edema. Peripheral pulses in the feet are palpable. NEUROLOGIC: Unremarkable. No focal localizing neuro deficit is appreciated. LABORATORY DATA: The patient's lab work showed WBC count yesterday was 5100, hemoglobin 11.9 with a hematocrit of 36.2. Today's WBC count is 5900, hemoglobin 9.9 with a hematocrit of 30. The patient's BUN yesterday was 12, creatinine 0.7, potassium 3.8. Today's BUN is 15, creatinine 0.7, potassium level is 4.6, the glucose level is 105, troponin level yesterday was less than 0.02. The cholesterol level yesterday was 76 with LDL cholesterol of 16, HDL cholesterol 52, and triglycerides of 40. DIAGNOSTIC DATA: The patient's electrocardiogram showed normal sinus rhythm with isolated PACs, first-degree AV block, and possible septal myocardial infarction, possibly old. The EKG is unchanged from the last EKG in my office done on 07/08/2024. The patient's x- ray of the right knee showed distal femur fracture. The CT scan of the lower extremities also showed right femur distal fracture. The chest x-ray was reported to be unremarkable. CLINICAL IMPRESSION: 1. Acute right lower femur fracture and the patient is scheduled for surgery for the same. 2. Chronic hypertension. 3. Cardiac dysrhythmia. 4. Anemia. 5. Chronic low back pain syndrome. SUGGESTIONS: I agree with the present plan of management of the patient of withholding the antihypertensive medications as the patient's blood pressure is on the lower side. The analgesic medications will be continued. The patient's cardiac status at the present time is stable for the planned surgery. The last cardiac echo Doppler study done in my office showed left ventricular ejection fraction to be 73% with mild mitral and mild tricuspid regurgitation. Trace aortic regurgitation was also reported. I will follow the patient with you and I highly thank you very much for letting me participate in the care of the patient. DT: 09:15:42 TT: 11:56:00 Ref: [id number] - TID: [id number]
--- NOTE | 2024-09-25 12:05 | PC.NURSE ---
patient to surgery via hospital bed
--- NOTE | 2024-09-25 12:28 | XR_ITS ---
Examination: Right knee 3 views Fluoroscopy Exam date and time: September 25, 2024 1510 hours INDICATIONS: Acute severely comminuted fractures distal femoral shaft on CT examination September 24, 2024, operative reduction internal fixation fractures today. FINDINGS: Operative reduction internal fixation fractures distal femoral shaft Satisfactory alignment Orthopedic hardware satisfactory position Fluoroscopy 20 seconds 3 spot AP lateral films of the right knee IMPRESSION: Operative reduction internal fixation fractures distal femoral shaft with satisfactory alignment
--- NOTE | 2024-09-25 14:33 | SUR.PHASEI ---
1433 Patient meets discharge criteria from recovery, awake and talking with staff, on oxygen 8L via oxy mask, breathing unlabored, vitals signs stable, denies pain, lung sounds clear upon auscultation, bilateral dorsalis pedis pulses present when palpated, patient has good circulation to right lower extremity; skin color normal for patient and warm to touch, post spinal anesthesia assessment via ice; patient has dermatome sensation at :L3-thigh, urinary catheter 16F in place with leg secure; draining to gravity, report received from Dr. Gay and Flakito AMADO
--- NOTE | 2024-09-25 14:34 | XR_ITS ---
Examination: Knee, right , 3 views Technique: Knee AP, lateral, oblique 3 views Date and time of exam: September 25, 2024 1450 hours INDICATIONS: Postop reduction internal fixation severely comminuted fracture distal femoral shaft FINDINGS: Operative reduction internal fixation severely comminuted fracture distal femoral shaft Satisfactory alignment Orthopedic hardware satisfactory position IMPRESSION: Postop reduction internal fixation severely comminuted fractures distal femoral shaft with satisfactory alignment
--- NOTE | 2024-09-25 14:35 | PD.SUROPNT ---
Date of Procedure 09/25/24 Pre Op Diagnosis Right distal femur fracture. Status post right total knee replacement Post Op Diagnosis Same Procedure Reduction internal fixation with distal femur interlocking plate. 8 hole plate. Synthes DePuy implant Findings Refer dictation Procedure Description Patient was given a spinal anesthesia. Once satisfactory anesthesia achieved patient was put on fracture table. Part was thoroughly prepped and draped. Intravenous antibiotics was given at the time of anesthesia Position was checked under C arm and it was displaced. A skin incision was made from the knee joint level on the lateral aspect extending proximally along the lateral axis of the femur. The length of the skin incision was about 12 inches or so. Deeper dissection was carried out. Tensor fascia gonzalo was incised in the line of his skin incision. Bleeding vessels were electrocoagulated. The muscles was reflected anterior laterally. The soft tissue interposed between the fracture fragment was removed Following that an appropriate size 8 hole plate was mounted over the lateral aspect and was satisfactory position was achieved and checked under C arm the fracture was reduced and the plate was clamped. Position checked under C arm in lateral position as well and found to be extremely good. Following that through the central hole a guidepin was passed. Similarly on the proximal side through one of the hole of the plate pin was passed without the proximal end of the plate does not removed. Following that after measuring appropriate side compression screw was placed at the distal end. Following that 2 compression the screw was placed at the proximal and patient was checked under C arm again in both AP and lateral and found to be good Following that using interlocking technique for interlocking screws were placed. 2 screws were probably hitting the implant therefore they were of shorter size. Altogether for interlocking screw and 1 compression screw was placed distally Attention was then paid to the proximal side. 3 interlocking screw was placed using the interlocking technique Wound was irrigated with antibiotic solution every 4 to 5 minutes Closure. The vastus lateralis was closed with the help of 2-0 Vicryl in an interrupted fashion. The tensor fascia gonzalo was closed with 1 Vicryl in continuous fashion. The subcu tissue was closed with 2-0 Vicryl. The skin was closed with shannon Patient tolerated procedure well. Estimated blood loss 100 mL. During the procedure the capsule of the joint was incised. The joint fluid came out and there was some whitish material which was probably consistent with fat globules. Anyway I obtained a culture swab and sent for aerobic and anaerobic cultures tested and for Gram staining. Anesthesia spinal Pathology / specimen None Estimated Blood Loss 100 Surgeon Marino Hernandez MD Surgical Staff Operation Date: 09/25/24 13:15 Case Staff Anesthesiologist: Fermin Gay RN First Assistant: Lydia Shannon
--- NOTE | 2024-09-25 15:32 | SUR.PHASEI ---
1529 Report given to Melissa AMADO, patient meets discharge criteria from recovery, awake and alert, breathing unlabored, vitals signs stable, denies pain, dressing intact; sutures, telfa, fluffs, abd, webril, bias roll, silk tape, knee imbolizer, no bleeding noted, patient has good circulation to right lower extremity; skin color normal for patient and warm to touch, post spinal anesthesia assessment via ice; patient has dermatome sensation at :L5-lower legs, urinary catheter 16F in place with leg secure; draining to gravity, patient eating ice chips toleating well. 1532 Patient transported via bed to room 369 without incident, patient resting comfortably in bed with call light in reach when this curriculum writer left patients room
--- NOTE | 2024-09-25 15:58 | PD.RESPRO ---
Documentation for date of: 09/25/24 Subjective Subjective Interval history: Patient seen at bedside. No acute overnight events. Patient is scheduled for surgery today with Dr. Cummings, currently NPO. Cleared by multimedia manager Dr Escobedo Patient expressed her wish to leave immediately after surgery and is aware that she may not be cleared. Patient understands the consequences of leaving AGAINST MEDICAL ADVICE. Exam Vital Signs Temp Pulse Resp BP Pulse Ox O2 Del Method O2 Flow Rate 98.4 F 68 12 153/71 H 100 Room Air 8 09/25/24 14:33 09/25/24 14:33 09/25/24 14:33 09/25/24 14:33 09/25/24 14:33 09/25/24 12:00 09/25/24 14:33 Narrative Exam GENERAL: AAOX3. 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 Eyes open, symmetrical, & clear CARDIO: No chest pain on palpation. Irregular rhythm, no murmurs PULM: No noted coughing/dyspnea. Lungs CTA B/L GI: Abdomen soft, nondistended, no pain on palpation. 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 SKIN/MSK/EXT: Right lower extremity shorter than left, externally rotated. Right knee is swollen and tender to touch Objective Labs 09/25/24 04:36 09/25/24 04:36 Labs: Laboratory Results - last 24 hr 09/24/24 09/24/24 09/25/24 03:13 19:13 04:36 WBC 5.7 RBC 2.83 L Hgb 9.9 L D Hct 30.0 L MCV 106 H MCH 35.0 MCHC 33.0 RDW Std Deviation 58.8 H Plt Count 122 L Neut % (Auto) 67 Lymph % (Auto) 15 [place] % (Auto) 17 H Eos % (Auto) 0 Baso % (Auto) 1 Neut # (Auto) 3.8 Lymph # (Auto) 0.9 L [place] # (Auto) 1.0 H Eos # (Auto) 0.0 Baso # (Auto) 0.0 Immature Gran # (Auto) 0.02 H Absolute Nucleated RBC 0.00 Immature Gran % 0 Nucleated RBC % 0 PT 11.4 INR 1.0 APTT 25.3 Sodium 140 Potassium 4.6 D Chloride 107 Carbon Dioxide 25.8 Anion Gap 7 BUN 15 Creatinine 0.7 Estim Creat Clear Calc 47.4 L eGFR > 60 BUN/Creatinine Ratio 21 H Glucose 105 Calculated Osmolality 280 Calcium 8.3 Corrected Calcium 8.9 Phosphorus 4.0 Magnesium 1.9 Total Bilirubin 0.4 AST 27 ALT 19 Alkaline Phosphatase 52 Total Protein 5.1 L Albumin 3.3 L D Globulin 1.8 L Albumin/Globulin Ratio 1.8 Triglycerides 40 Cholesterol 76 L LDL Cholesterol, Calc 16 HDL Cholesterol 52 Cholesterol/HDL Ratio 1.5 L Ur Collection Type Clean Catch Urine Color Lt-Yellow Urine Clarity Clear Urine pH 7.0 Ur Specific Harper 1.021 Urine Protein Negative Urine Glucose (UA) Negative Urine Ketones Negative Urine Blood Negative Urine Nitrite Negative Urine Bilirubin Negative Urine Urobilinogen (Auto) Negative Ur Leukocyte Esterase Negative Urine RBC 2 Urine WBC 2 Ur Squamous Epith Cells 0 Urine Bacteria None Ur Culture Indicated? Not Indicated Blood Type B Positive Antibody Screen NEGATIVE Crossmatch See Detail Blood Bank Wristband ID Yes Quality Measures Quality Measures none Advance care planning discussed with:: patient Assessment & Plan Assessment Current Active Medications: Generic Name Dose Route Start Last Admin Trade Name Freq PRN Reason Stop Dose Admin Acetaminophen 650 mg 09/24/24 17:18 Acetaminophen 325 Mg Tablet PO 10/24/24 17:17 Q6H PRN Pain 1-3 or Fever >100.3 Amlodipine Besylate 5 mg 09/24/24 18:30 09/25/24 08:01 Amlodipine Besylate 5 Mg Tablet PO 10/24/24 18:29 Not Given QDAY [facility] Cefazolin Sodium/Dextrose 1 gm in 50 mls @ 50 mls/hr 09/25/24 15:51 Ancef Ivpb IV 09/26/24 00:50 Q8H JI Lisinopril 40 mg 09/24/24 17:30 09/25/24 08:01 Lisinopril 20 Mg Tablet PO 10/24/24 17:29 Not Given QDAY JI Morphine Sulfate 2 mg 09/24/24 21:30 09/25/24 09:54 Morphine Sulf Inj 10 Mg/Ml Vial IVP 09/29/24 21:29 2 mg Q4HR PRN Administration PAIN SCALE 7-10 (Severe Morphine Sulfate 4 mg 09/25/24 15:51 Morphine Sulf Inj 10 Mg/Ml Vial IV 09/30/24 15:50 Q4HR PRN PAIN Ondansetron HCl 4 mg 09/24/24 17:18 Ondansetron Inj 2 Mg/Ml Inj 2 Ml IV 10/24/24 17:17 Q6H PRN NAUSEA OR VOMITING Protocol Ondansetron HCl 4 mg 09/25/24 15:51 Ondansetron Inj 2 Mg/Ml Inj 2 Ml IV 10/25/24 15:50 Q6HR PRN NAUSEA OR VOMITING Sennosides 1 tab 09/25/24 09:00 09/25/24 08:02 Senna Tablet PO 10/25/24 08:59 Not Given QDAY JI Protocol Tizanidine HCl 4 mg 09/24/24 17:31 Tizanidine Hcl 2 Mg Tablet PO 10/24/24 20:59 BID PRN Spasms Plan Summary: The patient is a 79-year-old female with a past medical history of hypertension and seizure disorder presented to the ED on 09/24/2024 after fall. #Acute comminuted fracture of distal femoral shaft #S/P fall Per the patient, she was in the parking lot by [employer] trying to load up a chair into her car by herself when she tripped on the curb and fell. She hit her head upon impact but did not lose consciousness. She tried to get up but was unable to and eventually had to get an ambulance called for her. She complains of pain in her head and open minimal balance moderate pain in her right knee. X-ray femur was done which showed acute severely comminuted fractures of the distal femoral shaft Orthopedic surgeon Dr. Hernandez was consulted in the ED and recommended to admit the patient for possible surgical intervention. Planned for surgery today, cleared by cardioologist Dr Escobedo Plan:- -For surgery today -Pain management -Orthopedic consulted, appreciate recommendations #Paroxysmal versus chronic A-fib In the ED, an EKG was done which showed a sinus rhythm. However upon examination, patient was noted to be in A-fib however rate controlled. When asked, patient reported that she has been told before that she has skipping heartbeats. Heart rates currently normal Plan: -Continue to monitor #?Seizure disorder The patient is on primidone 50 mg and zonisamide 100 mg daily. Plan: -Resume home meds #History of hypertension Patient has a history of hypertension and is on lisinopril 40 mg and amlodipine 5 mg daily. Blood pressure on admission active elevated. Plan: -Resume home meds Health maintenance: Dispo: MedTele Diet: Npo after midnight GI: Pantoprazole DVT: SC Heparin x 1 Rodríguez: None Lines: Peripheral Med Rec: Pending, f/u PT: Ordered Code: Full Case was discussed with Dr Guzman PGY-2 and attending physician, Dr Roxana Powell MD PGY-1 Disclaimer: This note was dictated by speech recognition. Minor errors in head porter baggage may be present due to voice recognition software. Attending Provider Attestation/Addendum I reviewed labs, imaging, EKG, home medications and prior available records. Face to face evaluation was performed by me. I have personally examined the patient and discussed assessment and plan with the IM team. I reviewed the resident note and agree with the plan with exceptions as below. Ground-level fall Acute comminuted fracture of distal femoral shaft Paroxysmal atrial fibrillation Consulted orthopedic surgery: Status post open reduction and internal fixation. Management of pain as needed. Will discharge on hydrocodone as needed Patient left the hospital AGAINST MEDICAL ADVICE. She was instructed to continue outpatient physical therapy and to follow-up with orthopedic surgery as outpatient.
--- NOTE | 2024-09-25 16:00 | PC.NURSE ---
Pt came back from surgery. Very adamant that she needs to go home as soon as possible. States she has a significant other at home that is dying of cancer and she needs to be home to care for him. Educated patient that she needs to stay to recover from surgery and that she is a high risk for blood clots due to Right knee surgery. Patient is aware that it is in her best interest to stay but still refusing to stay. Patient will leave AMA. Dr. Cummings and hospitalist aware.
--- NOTE | 2024-09-25 16:22 | SUR.PHASEI ---
1501 XRAY complete per MD order
--- NOTE | 2024-09-25 17:33 | ESCONSULT_ITS ---
RE: CURLY ARROYO : 1945 DATE OF CONSULTATION: 09/25/2024 Thank you, for asking me to consult on the patient whom I saw early in the morning on 09/25/2024. HISTORY OF PRESENT ILLNESS: As per history available, the patient was at [facility] trying to put some item in her car when she slipped and fell down. The patient injured her right side of the face and also was unable to get up. The patient called ambulance and was brought to the emergency room. X-ray was obtained, which revealed displaced fracture of the right distal femur. The patient is also status post right total knee replacement. PAST MEDICAL HISTORY: The patient has history of high blood pressure, chronic low back pain, arthritis, and cardiac dysrhythmia. PAST SURGICAL HISTORY: Includes right total knee replacement, cervical spine surgery, gastric bypass surgery, and history of left foot toe amputation. DRUG HISTORY: The patient is on lisinopril, amlodipine, vitamin , tizanidine, and . ALLERGIES: PENICILLIN, ADHESIVE TAPES , CONTRAST MEDIA. FAMILY HISTORY AND SOCIAL HISTORY: Noncontributory. PHYSICAL EXAMINATION: GENERAL: Fully alert and oriented lady. VITAL SIGNS: Pulse 88 per minute. Blood pressure is 140/86. NECK: Soft, supple. No masses felt. Trachea centrally placed. CARDIOVASCULAR SYSTEM: First and second heart sounds are normal. No murmur heard. RESPIRATORY SYSTEM: Bilateral vesicular breath sounds. CHEST: Clear. ABDOMEN: Soft. No masses felt. Bowel sounds present. examination revealed ecchymosis and bruise. The leg will deform. Dorsalis pedis artery and tibial artery is palpable. DIAGNOSTIC DATA: X-ray of the knee revealed displaced fracture of the distal femur. CT scan was also obtained. It did not reveal any intercondylar extension in the joint. The patient was explained the diagnosis and prognosis. The patient was explained it needs to be fixed with the plate and screws. Detailed discussion took place. Risks and benefits were explained. Risks with anesthesia includes, but not limited to reaction to anesthetic agents, cardiac arrest or rarely it might be fatal. Risks with operation includes infection and if that happens, the patient may need further surgical procedure. Other risks include delayed healing, wound dehiscence, etc. No guarantee is given regarding outcome of the procedure and/or relief of symptoms. Appropriate lab work is done. Surgery is booked for 09/25/2024. DT: 14:48:50 TT: 16:33:00 Ref: [id number] - TID: [id number]
--- NOTE | 2024-09-26 12:02 | ESDS_ITS ---
Planned Discharge Date 09/25/24 DS: Providers Provider Date of admission: 09/24/24 17:19 Primary care physician: Choco Maxwell Admitting Provider: Vince Schmidt MD Attending Provider on Admission: Vince Schmidt MD Consults: 09/24/24 16:36 Consult to Orthopedic Stat Comment: Supracondylar fracture right femur Consulting Provider: Marino Hernandez 09/24/24 17:28 Referral Physical Therapy Routine Comment: Physician Instructions: 09/24/24 21:12 [facility] Referral - Nutrition Routine Comment: Positive screening for nutrition needs. 09/24/24 23:29 [facility] Referral - Nutrition Routine Comment: Positive screening for nutrition needs. 09/25/24 08:45 Consult to Cardiology Routine Comment: cardiac clearance for surgery Consulting Provider: Brando Crowe Attending Provider on DC: Estelle Powell MD Discharging Provider: Estelle Powell MD DS: Diagnosis Problem List Completed Was Problem List Reviewed/Reconciled?: Yes Hospital Course Hospital Course Hospital course: The patient is a 79-year-old female with a past medical history of hypertension and seizure disorder presented to the ED on 09/24/2024 after a fall. On examination, patient had multiple bruises including on the right eyebrow, elbow enlargement of the right knee as well as some associated swelling. Right lower extremity on examination was shorter than the left and externally rotated. CT cervical spine showed no acute cervical fracture but x-ray femur showed acute severely comminuted fractures of the distal femoral shaft. Orthopedic surgeon Dr. Gordon was consulted and the patient was scheduled for surgery. On 09/25/2024, the patient had reduction and internal fixation with interlocking plate of the right distal femur. The patient insisted after surgery that she wanted to leave as she had a partner with a terminal illness at home and she needed to care for him. The patient was educated on the need to stay and recover from surgery as well as the consequences of leaving, patient understands that it is in her best interest to stay but decided to leave AGAINST MEDICAL ADVICE. #Acute comminuted fracture of distal femoral shaft s/p ORIF #History of hypertension #History of seizure disorder. Case was discussed with Dr Lopez PGY-2 and attending physician, Dr Roxana Powell MD PGY-1 Disclaimer: This note was dictated by speech recognition. Minor errors in signals collector/analyst may be present due to voice recognition software. 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 Eyes open, symmetrical, & clear CARDIO: No chest pain on palpation. Heart RRR, no obvious murmurs PULM: No noted coughing/dyspnea. Lungs CTA B/L GI: Abdomen soft, nondistended, no pain on palpation. BSx4 URO/COMFORT FILLER:: No further abnormalities noted. SKIN/MSK/EXT: Right lower extremity with dressing status post surgery, warm to touch and slightly tender. Discharge Plan Plan Patient Disposition: Left Against Medical Advice Disposition Comment: Stable Prescriptions/Referrals Prescriptions/Med Rec: No Action ibuprofen 800 MG tablet 800 mg PO Q8HR PRN (Reason: PAIN) Qty: 0 lisinopril 40 MG tablet 40 mg PO QDAY Qty: 0 tizanidine 4 mg tablet 4 mg PO BID PRN (Reason: Spasms) Patient Comments: TAKE 1 TABLET BY MOUTH TWICE A DAY NEEDED amlodipine 5 mg tablet 5 mg PO QDAY hydrocodone-acetaminophen 10-325 mg tablet 1 tab PO Q8H PRN (Reason: Pain) Patient Comments: TAKE 1 TABLET BY MOUTH EVERY 8 HOURS NEEDED ergocalciferol (vitamin D2) 1,250 mcg (50,000 unit) capsule 50,000 unit PO 2 X WEEKLY Rx Instructions: SATURDAY & SATURDAY. escitalopram oxalate 20 mg tablet 20 mg PO QDAY Calcium 600 + D(3) 600-125 mg-unit Tablet 1 tab PO QDAY primidone 50 mg tablet 50 mg PO QDAY Patient Comments: PLEASE SEE ATTACHED FOR DETAILED DIRECTIONS Referrals: Choco Maxwell [Primary Care Provider] - Patient/Caregiver Discharge Instructions Print Language: Estonian Quality Discharge Quality Measures VTE prophylaxis MD Attestestation MD Attestation I reviewed labs, imaging, EKG, home medications and prior available records. Face to face evaluation was performed by me. I have personally examined the patient and discussed assessment and plan with the IM team. I reviewed the resident note and agree with the plan with exceptions as below. Ground-level fall Acute comminuted fracture of distal femoral shaft Paroxysmal atrial fibrillation Consulted orthopedic surgery: Status post open reduction and internal fixation. Management of pain as needed. Will discharge on hydrocodone as needed Patient left the hospital AGAINST MEDICAL ADVICE. She was instructed to continue outpatient physical therapy and to follow-up with orthopedic surgery as outpatient.
== END 2024-09-25 16:50 | disposition left against medical advice (07) | DRG 482 ==
LOC: SERX 16:46 → SERHOLD 18:12 → S3SX 20:32
PROVIDERS: Nurse Practitioner Family; Orthopaedic Surgery; Admitting Provider Student in an Organized Health Care Education/Training Program; Emergency Provider Emergency Medicine; PCP Internal Medicine; Visit Provider Student in an Organized Health Care Education/Training Program
PROC: 0QS804Z Reposition Right Femoral Shaft with Internal Fixation Device, Open Approach (ICD-10-PCS; CPT 27514; principal; 2024-09-25 13:00)
DX: S72.351A Displaced comminuted fracture of shaft of right femur, initial encounter for closed fracture (principal); I10 Essential (primary) hypertension; I48.0 Paroxysmal atrial fibrillation; I48.91 Unspecified atrial fibrillation; M54.50 Low back pain, unspecified; S00.11XA Contusion of right eyelid and periocular area, initial encounter; S50.00XA Contusion of unspecified elbow, initial encounter; Z79.899 Other long term (current) drug therapy; G40.909 Epilepsy, unspecified, not intractable, without status epilepticus; G89.4 Chronic pain syndrome; Z98.84 Bariatric surgery status; W10.1XXA Fall (on)(from) sidewalk curb, initial encounter; Z89.412 Acquired absence of left great toe; Z88.0 Allergy status to penicillin; Z96.651 Presence of right artificial knee joint; Z53.29 Procedure and treatment not carried out because of patient's decision for other reasons
CPT/HCPCS: 36415; 70450; 71045; 72125; 72170; 73552; 73560; 73562; 73700; 76000; 80053; 80061; 81001; 83735; 83880; 84100; 84484; 85025; 85610; 85730; 86850; 86900; 86901; 86923; 87070; 87075; 87081; 87205; 93225; J0690; J2270; J2405; J2704; J2795; J3010; J3490; P9016; A9270

== ENCOUNTER 2024-10-16 08:45 | Outpatient (AMB) | payer OTHER, MEDICAID, SELFPAY ==
--- NOTE | 2024-10-16 09:13 | ORTHONT_ITS ---
Vital signs 10/16/24 09:14 Height 1.63 m Height Method Stated Weight 45.359 kg Weight Measurement Method Standing Scale BMI 17.2 BP 140/67 H Blood Pressure Source Automatic Cuff Blood Pressure Location Left Upper Arm Position Sitting Respiration 18 Pulse 76 Pulse Source Monitor Temp 97.8 F Temp Source Temporal Artery Scan Pulse Oximetry (%) 96 Oxygen Delivery Method Room Air Med/Allergies Allergies & Medications Allergies Penicillins Allergy (Unknown, Verified 10/16/24 09:15) Adhesives Allergy (Intermediate, Uncoded 10/16/24 09:15) Rash Contrast Media Allergy (Intermediate, Uncoded 10/16/24 09:15) Rash MESH Allergy (Mild, Uncoded 10/16/24 09:15) Blister Medication Reconciliation ibuprofen 800 mg tablet 800 mg PO Q8HR PRN PAIN #0 tabs 02/26/14 [History Confirmed 10/16/24] lisinopril 40 mg tablet 40 mg PO QDAY High Blood Pressure #0 tabs 02/26/14 [History Confirmed 10/16/24] amlodipine 5 mg tablet 5 mg PO QDAY 01/06/21 [History Confirmed 10/16/24] ergocalciferol (vitamin D2) 1,250 mcg (50,000 unit) capsule 50,000 unit PO 2 X WEEKLY 01/06/21 [History Confirmed 10/16/24] escitalopram oxalate 20 mg tablet 20 mg PO QDAY 01/06/21 [History Confirmed 10/16/24] hydrocodone 10 mg-acetaminophen 325 mg tablet 1 tab PO Q8H PRN Pain 01/06/21 [History Confirmed 10/16/24] tizanidine 4 mg tablet 4 mg PO BID PRN Spasms 01/06/21 [History Confirmed 10/16/24] calcium carbonate-vitamin D3 600 mg-125 unit tablet 1 tab PO QDAY 12/18/22 [History Confirmed 10/16/24] primidone 50 mg tablet 50 mg PO QDAY 09/25/24 [History Confirmed 10/16/24] Exam Exam Patient is in no acute distress and is cooperative with the examination today. Patient has a normal mood and affect. Breathing is nonlabored. In no respiratory distress. Bilateral extremities were evaluated and demonstrates sensation intact to light touch. Palpable pedal pulses are present. No significant edema is present. Right lateral incision is clean dry and intact. There are shannon. We will remove them today as it has been 2-1/2 weeks. We applied Steri-Strips on it. Assessment and Plan Problem List (1) Closed supracondylar fracture of femur: Status: Acute Plan: Patient is a 79-year-old female with a distal femur periprosthetic fracture done by another surgeon. I am removing his shannon as the other orthopedic surgeon who did his surgery is not here currently. She can follow-up with him. She should continue to be nonweightbearing and wear a knee immobilizer. We gave her a shorter one as her last one is very long. We will see her back for follow-up. 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 ([id number]) MA Intake Visit Data Collection New Patient or Established: Established Patient (seen at [facility] within 3 years) Reason for Visit:: FRACTURE ON KNEE F/U Seen by Clinical Staff ONLY (RN/MA): No Security Operations Manager Required: No PCP or OBGYN visit in last 3 months: Yes Hx Now: No Do You Feel Safe at Home: Yes Authorities Contacted: N/A Questionairres Past Medical History Past Medical History Have you ever been diagnosed with any of the following: Neurological Problems Cerebrovascular Accident (CVA): No Alzheimer's Disease: No Seizures: No Head Trauma: Yes Cardiology Problems Cardiac Arrhythmia: Yes Congestive Heart Failure: No Hypertension: Yes Respiratory Problems Chronic Obstructive Pulmonary Disease (COPD): Yes Smoking: No Smoking Cessation Counseling: No Smoking Exposure: No Stomache/Intestinal Problems Liver Cancer: No Pancreatic Cancer: No Genital/Urinary Problems Renal Disease: No Kidney Stones: Yes Musculoskeletal Problems Bone Cancer: Yes Arthritis: Yes Osteoporosis: Yes Fractures: Yes Endocrine Problems Diabetes Mellitus Type 1: No Diabetes Mellitus Type 2: No Blood Problems Anemia: No Leukemia: No Psychologic Problems Depression: Yes Other Problems Hospitalization: Yes Down Syndrome: No Developmental Delay: No Shingles: Yes Blood Transfusions: No Blood Transfusion Reaction: No Anesthesia Reactions: No Cancer: Yes Subjective Visit Visit for: new patient and knee (RIGHT/FRACTURE) Immunization / Flu Flu Vaccine in the Last 12 Months: Yes Flu Vaccine Exclusion Criteria: Already Received History of Present Illness Chief complaint: Right distal femur surgery Patient is a 79-year-old female who had a distal femur ORIF adjacent to a total knee replacement done 2-1/2 weeks ago. She is here for follow-up as her surgeon is in the ER for a month. She is scheduled to see him when he gets back in a couple weeks. She reports that she is doing well and she has been nonweightbearing. She has been in the knee immobilizer Pain Pain level (0-10): 0 Associated signs & symptoms: none Ambulatory data Ambulatory device: other (specify) (WHEELCHAIR/BRACE) Treatments Improvement with previous injections: No Improvement with PT: No Improvement with NSAIDS: no Review of Systems Review of Systems: All systems negative unless otherwise noted in HPI.
[2024-10-16 09:14] VITALS: BP 140/67; PULSE 76; RESP 18; TEMP 36.6; O2SAT 96; BMI 17.2
== END 2024-10-16 09:38 | disposition home or self-care (01) ==
LOC: HODSRG 08:45
PROVIDERS: PCP Internal Medicine; Referring Provider Internal Medicine; Supervising Provider Orthopaedic Surgery Adult Reconstructive Orthopaedic Surgery; Visit Provider Orthopaedic Surgery Adult Reconstructive Orthopaedic Surgery
DX: S72.451D Displaced supracondylar fracture without intracondylar extension of lower end of right femur, subsequent encounter for closed fracture with routine healing (principal); X58.XXXD Exposure to other specified factors, subsequent encounter; Z96.659 Presence of unspecified artificial knee joint
CPT/HCPCS: 99203; G0463

== ENCOUNTER → 2024-11-12 | Outpatient (CLI) | payer OTHER, MEDICAID, SELFPAY ==
[2024-11-12 12:16] LABS: Basophils # (Auto) 0.1 Thou/mm3 (0.0-0.2); Basophils % (Auto) 1 % (0-2.5); Eosinophils % (Auto) 0 % (0-10); Hematocrit 38.4 % (36.0-46.0); Hemoglobin 12.5 g/dL (12.0-16.0); Immature Granulocytes % (Auto) 0 % (0-0); Immature Granulocytes Auto 0.02 Thou/mm3 (0.00-0.00); Lymphocytes # (Auto) 0.7 Thou/mm3 (1.0-4.8); Lymphocytes % (Auto) 15 % (10-50); Mean Corpuscular HGB Conc 32.6 g/dl (31.0-37.0); Mean Corpuscular Hemoglobin 31.7 pg (25.0-35.0); Mean Corpuscular Volume 98 fL (80-100); Monocytes # (Auto) 0.5 Thou/mm3 (0.0-0.8); Monocytes % (Auto) 10 % (0-12); Neutrophils # (Auto) 3.6 Thou/mm3 (1.8-7.7); Neutrophils % (Auto) 73 % (37-80); Nucleated Red Blood Cell % 0 /100 WBC (0); Platelet Count 203 Thou/mm3 (140-440); RDW Standard Deviation 62.7 fL (36.4-46.3); Red Blood Count 3.94 Miln/mm3 (4.00-5.20)
[2024-11-12 12:24] LABS: Creatinine MALB Rnd Ur 87 mg/dL (30-125); Microalbumin Creat Ratio 20 mg/gCrea (<30); Microalbumin, Random Urine 17 mg/L (0-300)
[2024-11-12 12:26] LABS: T4 (Thyroxine) 7.3 mcg/dL (4.5-10.9)
[2024-11-12 12:28] LABS: Alanine Aminotransferase 17 U/L (10-49); Albumin, Serum 3.4 gm/dL (3.4-4.8); Albumin/Globulin Ratio 1.5 (1.2-2.2); Alkaline Phosphatase 162 U/L (46-116); Anion Gap 11 (7-16); Aspartate Amino Transferase 29 U/L (0-34); BUN/Creatinine Ratio 16 Ratio (12-20); Bilirubin,Total 0.5 mg/dL (0.3-1.2); Blood Urea Nitrogen 13 mg/dL (9-23); Calcium 8.4 mg/dL (8.3-10.6); Calcium (Corrected) 8.9 mg/dL (8.5-10.1); Carbon Dioxide 22.4 mMol/L (20.0-31.0); Cardiac Risk Estimate 1.6 RATIO (3.7-5.6); Chloride 108 mMol/L (98-107); Cholesterol 110 mg/dL (132-200); Creatinine (Component) 0.8 mg/dL (0.6-1.3); Globulin 2.2 gm/dL (2.3-3.5); Glucose 95 mg/dL (74-106); HDL Cholesterol 67 mg/dL (40-60); LDL Cholesterol,Calculated 29 mg/dL (0-130); Osmolality,Calculated 281 (275-295); Potassium 4.3 mMol/L (3.4-5.1); Sodium 141 mMol/L (136-145); Thyroid Stimulating Hormone 2.04 uIU/mL (0.55-4.78); Total Protein 5.6 gm/dL (5.7-8.2); Triglycerides 68 mg/dL (30-150); eGFR > 60 See Note
[2024-11-12 12:42] LABS: Glucose Estimated Average 82 mg/dL (80-131); Hemoglobin A1C 4.5 % Hgb (4.8-6.0)
== END | disposition home or self-care (01) ==
PROVIDERS: PCP Nurse Practitioner Family; Referring Provider Nurse Practitioner Family; Visit Provider Nurse Practitioner Family
DX: I10 Essential (primary) hypertension (principal)
CPT/HCPCS: 36415; 80053; 80061; 82043; 82570; 83036; 84436; 84443; 85025

== ENCOUNTER → 2024-12-28 | Outpatient (CLI) | payer OTHER, SELFPAY ==
--- NOTE | 2024-12-28 09:55 | XR_ITS ---
Examination: Right elbow 3 views Technique: Elbow AP, oblique, lateral 3 views Exam date and time: December 29, 2019 5:10 AM INDICATIONS: Right elbow pain months FINDINGS: Resection proximal radius Significant osteoarthritis humeral ulnar joint No acute fracture IMPRESSION: Significant osteoarthritis humeral ulnar joint.
[2024-12-28 12:24] LABS: Vitamin B12 > 2000 pg/mL (211-911); Vitamin D 25 Hydroxy Total 35.3 ng/mL (7.3-40.2)
[2024-12-28 12:44] LABS: Glucose Estimated Average 94 mg/dL (80-131); Hemoglobin A1C 4.9 % Hgb (4.8-6.0)
[2025-01-04 07:31] LABS: Homocysteine* 19.6 umol/L (<10.4); Methylmalonic Acid, GC/MS/MS* 348 nmol/L (69-390)
== END | disposition home or self-care (01) ==
LOC: COPL 09:49
PROVIDERS: PCP Internal Medicine Clinical Cardiac Electrophysiology; Referring Provider Internal Medicine Clinical Cardiac Electrophysiology; Visit Provider Radiology Diagnostic Radiology
DX: M19.021 Primary osteoarthritis, right elbow (principal); E56.9 Vitamin deficiency, unspecified; R92.8 Other abnormal and inconclusive findings on diagnostic imaging of breast
CPT/HCPCS: 36415; 73080; 82306; 82607; 82746; 83036; 83090; 83921